=== PATIENT | female | born 1945 | race Caucasian/White ===

== ENCOUNTER 2020-04-30 11:26 | Outpatient (CLI) | payer MEDICARE, SELFPAY ==
--- NOTE | 2020-04-30 11:33 | XR_ITS ---
WS: [id number] Left rib detail, 2 views, 04/30/2020 Clinical Data: LEFT SIDED RIB PAIN Comparison: None. Findings: The left ribs are intact. No rib fractures seen. No subcutaneous emphysema is present. XR/XR ribs LT 2V* [id number] Impression: Negative left rib detail.
== END 2020-04-30 11:27 | disposition home or self-care (01) ==
PROVIDERS: Family Provider Electrodiagnostic Medicine; PCP Electrodiagnostic Medicine; Visit Provider Electrodiagnostic Medicine
DX: R07.81 Pleurodynia (principal)
CPT/HCPCS: 71100

== ENCOUNTER → 2020-08-06 10:30 | Outpatient (BNVA) | payer MEDICARE, SELFPAY | PROVIDERS: Family Provider Electrodiagnostic Medicine; PCP Electrodiagnostic Medicine; Visit Provider Electrodiagnostic Medicine | DX: Z20.828 Contact with and (suspected) exposure to other viral communicable diseases (principal) | CPT/HCPCS: 87635 ==

== ENCOUNTER 2020-09-18 10:50 | Outpatient (CLI) | payer MEDICARE, SELFPAY ==
--- NOTE | 2020-09-18 | MM_ITS ---
WS: [id number] BILATERAL DIGITAL SCREENING MAMMOGRAPHY WITH CAD CLINICAL INFORMATION: SCREENING HISTORY: Screening mammogram. No current complaints. COMPARISON: July 21, 2019 TECHNIQUE: Bilateral CC and MLO views. FINDINGS: Scattered fibroglandular densities bilaterally. No suspicious focal mass, asymmetry, calcifications, or architectural distortion. No evidence of malignancy. Punctate and lucent centered calcifications. Biopsy clip right breast. MM/[place] [id number] IMPRESSION: BI-RADS: 2-Benign FOLLOW UP: 1 Year Follow-up Recommend return to annual screening mammography.
== END 2020-09-18 10:51 | disposition home or self-care (01) ==
LOC: RADSHAW 10:54
PROVIDERS: Family Provider Electrodiagnostic Medicine; PCP Electrodiagnostic Medicine; Visit Provider Electrodiagnostic Medicine
DX: Z12.31 Encounter for screening mammogram for malignant neoplasm of breast (principal)
CPT/HCPCS: 77067

== ENCOUNTER 2020-10-26 08:22 | Outpatient (CLI) | payer MEDICARE, SELFPAY ==
[2020-10-26 08:30] VITALS: BP 152/89; PULSE 74; RESP 17; TEMP 36.7; O2SAT 96
[2020-10-26 08:37] VITALS: BP 153/83; PULSE 74; RESP 18; TEMP 36.7; O2SAT 97; BMI 24.1
[2020-10-26 08:49] VITALS: BMI 24.1
--- NOTE | 2020-10-26 09:00 | AMB.MCA ---
Patient Information Referred by: Claudio Symptom onset date: 10/22/20 COVID 19 common symptoms: positive fever(s), cough, non-productive cough, fatigue, body aches and nasal congestion COVID 19 other sytmptoms: positive pleuritic pain; negative chest pressure, chest pain, requiring oxygen, requiring more oxygen, respiratory distress, cyanosis, lethargy, confusion, new neurological complaints or other concerning symptoms Severity: moderate Treatment prior to arrival: none [facility] COVID test results: SARS-CoV-2 RNA (RT-PCR) Not detected (NOT DETECTED) 08/06/20 10:30 08/06/20 outside results available, scanned ( office scanned in) Criteria/Plan Inclusion/Exclusion Criteria weight >/= 40kg, + direct test </= 10 days ago and symptom onset </= 10 days ago age >/= 65, age >/= 55 and has hypertension and age >/= 55 and has COPD/lung diease not requiring hospitalization, not requiring oxygen (if not chronically on oxygen) and no increase oxygen requirement (if chronically on oxygen) Patient education patient/caregiver received/reviewed fact sheet, Emergency Use Authorization/unapproved drug status discussed with patient/caregiver, alternatives to this treatment discussed with patient/caregiver, risks and benefits of medication reviewed with patient/caregiver, patient/caregiver given opportunity for questions, which were answered and patient/caregiver consents to receiving Monoclonal Antibody Treatment Plan for treatment Meets criteria for Monoclonal Antibody infusion
[2020-10-26 09:31] VITALS: BP 144/73; PULSE 70; RESP 18; TEMP 36.8; O2SAT 96
[2020-10-26 09:46] VITALS: BP 148/82; PULSE 71; RESP 17; TEMP 36.8; O2SAT 96
[2020-10-26 11:04] VITALS: BP 152/89; PULSE 74; RESP 17; TEMP 36.7; O2SAT 96
--- NOTE | 2020-10-26 11:15 | PC.NURSE ---
1110 pt tolerated procedure well with no symptoms, iv discontinued intact and dressing applied. walked to private vehicle by nursing staff.
== END 2020-10-26 11:10 | disposition home or self-care (01) ==
PROVIDERS: Family Provider Electrodiagnostic Medicine; PCP Electrodiagnostic Medicine; Visit Provider Electrodiagnostic Medicine
DX: U07.1 COVID-19 (principal)
CPT/HCPCS: J7050

== ENCOUNTER 2021-05-08 08:39 | Outpatient (CLI) | payer MEDICARE, SELFPAY ==
--- NOTE | 2021-05-08 08:50 | FL_ITS ---
WS: [id number] MODIFIED BARIUM SWALLOW HISTORY: Other dysphagia FLUOROSCOPY TIME: 2.2 minutes. Modified barium swallow was performed by the speech pathologist. Fluoroscopy was provided with the pa tient in a lateral projection. Multiple food consistencies were provided. Patient swallowed all food consistencies without difficulty. Early during the examination barium reshma ected along the anterior pharynx. On the AP projection this is noted to be to the LEFT and most consi stent with a pharyngeal pouch overlying the C4-5 lateral masses. Single episode of laryngeal penetration was noted. Patient swallowed the barium tablet without diffic ulty. FL/FL barium swallow modifd [id number] IMPRESSION: 1. Small persistent LEFT lateral pharyngeal pouch. 2. Single episode of laryngeal penetration. Please see speech therapist report also for recommendations.
== END 2021-05-08 08:40 | disposition home or self-care (01) ==
LOC: RAD 08:49
PROVIDERS: PCP Electrodiagnostic Medicine; Visit Provider Electrodiagnostic Medicine
DX: R13.10 Dysphagia, unspecified (principal); R51.9 Headache, unspecified; J01.90 Acute sinusitis, unspecified; K21.9 Gastro-esophageal reflux disease without esophagitis
CPT/HCPCS: 74230; 92611

== ENCOUNTER 2024-03-02 09:08 | Outpatient (RCR) | payer MEDICARE, SELFPAY | END 2024-03-18 23:59 | disposition home or self-care (01) | LOC: SPT 09:08 | PROVIDERS: PCP Electrodiagnostic Medicine; Visit Provider Orthopaedic Surgery | DX: M70.61 Trochanteric bursitis, right hip (principal) | CPT/HCPCS: 97110; 97161 ==

== ENCOUNTER 2024-03-22 08:54 | Outpatient (RCR) | payer MEDICARE, SELFPAY | END 2024-04-17 23:59 | disposition home or self-care (01) | LOC: SPT 08:54 | PROVIDERS: PCP Electrodiagnostic Medicine; Visit Provider Orthopaedic Surgery | DX: M70.61 Trochanteric bursitis, right hip (principal) | CPT/HCPCS: 97110 ==

== ENCOUNTER 2024-08-29 14:17 | Outpatient (CLI) | payer MEDICARE, SELFPAY ==
--- NOTE | 2024-08-29 14:20 | XR_ITS ---
WS: [id number] SCREENING DEXA SCAN [employer] CLINICAL INFORMATION: POSTMENOPAUSAL COMPARISON: 2017 FINDINGS: The L1-L4 bone mineral density measures 0.870 g/cm2. This corresponds to a T score score of -2.6 and Z score of -0.6. Left femoral neck bone mineral density measures 0.738 g/cm2. This corresponds to a T score of -2.1 an d Z score of -0.1. Right femoral neck bone mineral density measures 0.677 g/cm2. This corresponds to a T score -2.6of an d Z score of -0.6. Mean femoral neck bone mineral density measures 0.707 g/cm2. This corresponds to a T score of -2.4 an d Z score of -0.4. XR/XR DEXA axial skeleton* [id number] IMPRESSION: Osteoporosis lumbar spine. Osteoporosis femoral necks. Patient's FRAX calculated 10 year probability for major osteoporotic fracture i s 19.4% and osteoporotic hip fracture is 6.8%. Bone mineral density lumbar spine decreased -2.4% Bone mineral density femoral necks decreased -6.6%
--- NOTE | 2024-08-29 14:20 | MM_ITS ---
WS: [id number] BILATERAL 3D TOMOSYNTHESIS DIGITAL SCREENING MAMMOGRAPHY WITH CAD CLINICAL INFORMATION: SCREENING HISTORY: Screening mammogram. No current complaints. COMPARISON: 2020 TECHNIQUE: Bilateral CC and MLO views. FINDINGS: Scattered fibroglandular densities bilaterally. No suspicious focal mass, asymmetry, calcifications, or architectural distortion. No evidence of malignancy. Incidental punctate and lucent centered calci fications. Biopsy clip RIGHT breast. MM/MM scr BI tomosynthesis [id number] IMPRESSION: DENSITY: There are scattered areas of fibroglandular density. BI-RADS: 2 - Benign. FOLLOW UP: 1 Year Follow-up Recommend return to annual screening mammography.
== END 2024-08-29 14:18 | disposition home or self-care (01) ==
LOC: RAD 14:18
PROVIDERS: PCP Electrodiagnostic Medicine; Visit Provider Electrodiagnostic Medicine
DX: Z12.31 Encounter for screening mammogram for malignant neoplasm of breast (principal); Z78.0 Asymptomatic menopausal state; M81.0 Age-related osteoporosis without current pathological fracture
CPT/HCPCS: 77063; 77067; 77080

== ENCOUNTER 2025-01-05 12:47 | Outpatient (CLI) | payer MEDICARE, SELFPAY ==
--- NOTE | 2025-01-05 12:53 | MR_ITS ---
WS: [id number] MRI HEAD WITH CONTRAST TECHNIQUE: Sagittal T1, T2 axial, T2 axial FLAIR, axial susceptibility weighted imaging, axial diffusion weighted images, and coronal T2 images were obtained. Pre and post-T1 axial and post T1 coronal images. ADC and FSPGR images. CLINICAL INFORMATION: CONCUSSION INJURY OF BRAIN COMPARISON: None. FINDINGS: No evidence of restricted diffusion to suggest acute ischemia. Ventricular system and basilar cisterns are patent. Moderate small vessel changes. Mild parenchymal volume loss. Normal posterior fossa. Normal vascular flow voids at the skull base. No extra-axial fluid collections. No mass or mass effect. Paranasal sinuses and mastoid air cells are well aerated. Tiny chronic lacunar infarct RIGHT cesario. Small focus of hemosiderin in the RIGHT parasagittal parietal lobe. Additional adjacent tiny focus of hemosiderin. Chronic lacunar infarct LEFT parasagittal frontal lobe. No abnormal gadolinium enhancement. Normal optic chiasm and pituitary infundibulum. Normal dural venous sinuses. MR/MR head wo/w con [id number] IMPRESSION: 1. No evidence of restricted diffusion to suggest acute ischemia. 2. No abnormal intracranial enhancement. 3. Moderate small vessel changes. Mild parenchymal volume loss. 4. Tiny chronic lacunar infarct RIGHT cesario. 5. Few small foci of hemosiderin in the RIGHT parasagittal frontal parietal lo bes at the vertex. 6. No other acute findings.
== END 2025-01-05 12:48 | disposition home or self-care (01) ==
PROVIDERS: PCP Electrodiagnostic Medicine; Visit Provider Electrodiagnostic Medicine
DX: S06.0X0A Concussion without loss of consciousness, initial encounter (principal); R93.0 Abnormal findings on diagnostic imaging of skull and head, not elsewhere classified; G31.89 Other specified degenerative diseases of nervous system
CPT/HCPCS: 70553